=== PATIENT | female | born 1990 | race Caucasian/White ===

== ENCOUNTER 2017-04-30 00:29 | Emergency (ER) | payer MEDICAID ==
[~2017-04-30] VITALS: Ht 162.6 cm; Wt 57.7 kg
[2017-04-30 00:30] VITALS: BP 122/83
[2017-04-30] MEDS ORDERED: ALBU8.5H8 INH (00:54)
[2017-04-30] MEDS ORDERED: LEVA15HF4 INH (00:55)
== END 2017-04-30 01:31 | disposition home or self-care (01) ==
LOC: ED 01:07
DX: H65.03 Acute serous otitis media, bilateral (principal); N39.0 Urinary tract infection, site not specified; J45.909 Unspecified asthma, uncomplicated; Z88.8 Allergy status to other drugs, medicaments and biological substances
CPT/HCPCS: 99283